=== PATIENT | male | born 1980 | race Caucasian/White ===

== ENCOUNTER 2017-09-30 17:40 | Emergency (ER) | payer OTHER ==
[2017-09-30 17:58] VITALS: BP 138/92
--- NOTE | 2017-09-30 18:15 | UC ---
General HPI - HPI Summary HPI Summary: This patient is a 37 year old M presenting to [facility] with a chief complaint of fever and chills since this morning. The patient reports that he spent a lot of time outside in the sun fly fishing this weekend and he thinks he overheated. He notes that he drank fluids after and denies finding any ticks or rashes on himself. The patient rates the pain 3/10 in severity. Symptoms aggravated by nothing. Symptoms alleviated by nothing. Patient reports joint pain and body aches since 2 days ago. Patient also reports fatigue and slight sore throat. Patient denies N/V/D. The patient notes he took ibuprofen for the pain. - History of Current Complaint Chief Complaint: UCGeneralIllness Stated Complaint: ACHES, AND CHILLS Time Seen by Provider: 09/30/17 17:56 Hx Obtained From: Patient Onset/Duration: Gradual Onset, Lasting Days - 2 days, Still Present Timing: Constant Onset Severity: Mild Current Severity: Mild Pain Intensity: 3 Aggravating: nothing Alleviating: nothing Associated Signs & Symptoms: Positive: Fever, Other - sore throat, fatigue, joint pain, body aches. Negative: Diarrhea, Nausea, Vomiting - Allergy/Home Medications Allergies/Adverse Reactions: Allergies Allergy/AdvReac Type Severity Reaction Status Date / Time No Known Allergies Allergy Verified 09/30/17 17:52 Home Medications: Home Medications Ibuprofen 600 mg PO Q8HR PRN 09/30/17 [History Confirmed 09/30/17] Omeprazole 20 mg PO DAILY 09/30/17 [History Confirmed 09/30/17] PMH/Surg Hx/FS Hx/Imm Hx Previously Healthy: Yes - Surgical History Surgical History: Yes Surgery Procedure, Year, and Place: hernia repair 2002. Lasic eye surgery 2010 - Family History Known Family History: Positive: None - Social History Alcohol Use: Occasionally Substance Use Type: None Smoking Status (MU): Never Smoked Tobacco Review of Systems Constitutional: Chills, Fatigue ENT: Sore Throat Gastrointestinal: Negative - negative N/V/D Musculoskeletal: Arthralgia - joint pain, Myalgia - body aches All Other Systems Reviewed And Are Negative: Yes Physical Exam - Summary Physical Exam Summary: VITAL SIGNS: Reviewed. GENERAL: Patient is a well-developed and nourished MALE who is lying comfortable in the stretcher. Patient is not in any acute respiratory distress. HEAD AND FACE: Normocephalic EYES: PERRLA, EOMI x 2. EARS: Hearing grossly intact. MOUTH: Oropharynx within normal limits. NECK: Supple, trachea is midline, no adenopathy, no JVD, no carotid bruit. CHEST: Symmetric, no tenderness at palpation LUNGS: Clear to auscultation bilaterally. No wheezing or crackles. CVS: Regular rate and rhythm, S1 and S2 present, no murmurs or gallops appreciated. ABDOMEN: Soft, non-tender. Bowel sounds are normal. No abdominal abnormal pulsations. EXTREMITIES: Full ROM in all major joints, no edema, no cyanosis or clubbing. NEURO: Alert and oriented x 3. No acute neurological deficits. Speech is normal and follows commands. SKIN: Dry and warm Triage Information Reviewed: Yes Vital Signs: Initial Vital Signs Temp 99.2 F 09/30/17 17:51 Pulse 77 09/30/17 17:51 Resp 18 09/30/17 17:51 BP 138/92 09/30/17 17:51 Pulse Ox 100 09/30/17 17:51 Vital Signs Reviewed: Yes Diagnostics - Radiology CXR Xray Interpretation: No Acute Changes - IMPRESSION: #. No evidence for pneumonia. #. Negative exam. Dr. Zaldivar has reviewed this report. Radiology Interpretation Completed By: Radiologist Course/Dx - Course Course Of Treatment: The chest x-ray impression: Negative for an acute pathology. Rapid strep was also negative. Because of the history that the patient has been doing a lot of exercise with flying fishing and under this on for the last 2 days the patient may be developing rhabdomyolysis. Therefore the patient is brought work and he is directed to the emergency department to rule out rhabdomyolysis. It is negative the patient is be safely discharged home with follow-up with PCP. Patient is hemodynamically stable he is alert and oriented 3. She declined ambulance transport. The significant other will be driving the patient to the emergency department. - Differential Dx - Multi-Symptom Provider Diagnoses: elevated blood pressure without diagnosis of hypertension, musculoskeletal pain, rule-out rhabdomyolysis Discharge - Sign-Out/Discharge Documenting (check all that apply): Patient Departure - Discharge Plan Condition: Stable Disposition: HOME-RECOMMEND TO ED Patient Education Materials: Musculoskeletal Pain (ED) Referrals: Kristin Rayo MD [Primary Care Provider] - Additional Instructions: Patient will be discharged to the emergency department for further workup and management. He declined ambulance transport. - Billing Disposition and Condition Condition: STABLE Disposition: Home-Recommend to ED
--- NOTE | 2017-09-30 18:49 | RAD ---
INDICATION: Chills and RIGHT ureters. 3 days dry cough. COMPARISON: No relevant prior exams available on the [facility] PACS for comparison. TECHNIQUE: Dual energy PA and routine lateral views of the chest were obtained. REPORT: Clear lungs and pleural spaces. Negative for pneumothorax. The heart, pulmonary vasculature, and mediastinal contours are unremarkable. Unremarkable osseous structures and soft tissue contours. IMPRESSION: #. No evidence for pneumonia. #. Negative exam.
== END 2017-09-30 19:04 | disposition home health service (06) ==
LOC: UCEAST 17:40
DX: M79.1 Myalgia (principal); R50.9 Fever, unspecified; R53.83 Other fatigue; J02.9 Acute pharyngitis, unspecified; R05 Cough; R03.0 Elevated blood-pressure reading, without diagnosis of hypertension
CPT/HCPCS: 71046; 87651; 99202; G0463

== ENCOUNTER 2017-09-30 19:27 | Emergency (ER) | payer OTHER ==
[2017-09-30 20:56] VITALS: BP 0/0
== END 2017-09-30 20:54 | disposition left against medical advice (07) ==
LOC: ED 19:27
DX: R68.89 Other general symptoms and signs (principal); Z53.21 Procedure and treatment not carried out due to patient leaving prior to being seen by health care provider